=== PATIENT | male | born 1940 | race Caucasian/White ===

== ENCOUNTER 2023-06-21 08:32 | Day surgery (SDC) | payer MEDICARE, OTHER ==
[2023-05-18 15:27] VITALS: BP 158/83
[2023-06-07 08:50] VITALS: BP 144/82
--- NOTE | 2023-06-07 10:23 | NUR ---
0921- WHILE ASKING PT ABOUT OPEN SORES ON HIS SKIN THE PT IS SHOWING THE REDNESS FROM HIS PSORISIS. LOOKED AT PT'S LEFT KNEE AND THERE WAS A SMALL REDENNED AREA. PT REPORTS ITS A MISQUITO BITE THAT HE SCRATCHED OPEN. 0938- DR. DAMON IN THE ROOM TO ASSESS THE PT. DR. DAMON UPDATES THE PT THAT HE WANTS THE AREA TO HEAL AND RESCHEDULE FOR A LATER DATE. PT AND PT'S FAMILY UNDERSTANDING. 0946- PT GOING TO DRESS HIMSELF WITH HIS FAMILY. 1019- DR. DAMON OFFICE CONTACTED AND UPDATED ON PT BEING CANCELLED.
[~2023-06-21] VITALS: Ht 177.8 cm; Wt 105.5 kg
[~2023-06-21 08:32] MED LIST: ASPIRIN EC81 MG PO; ASPIRIN325 MG PO; B-121000 MC2 PO; BETAMETHASONE D15 G1 TP; BREWER S YEAST PO; BREWER'S YEAST500 MG PO; CALCIPOTRIENE60 GM TOP; CARDIZEM CD180 MG PO; DILTIAZEM 24HR180 M1 PO; FISH OIL 1,0001 EAC2 PO; FLAX OIL1000 MG PO; GARLIC1000 MG PO; HALOBETASOL PRO15 G1 TOP; HYDROMORPHONE HC4 MG PO; IRON18 MG PO; L-LYSINE500 MG PO; LECITHIN1200 MG PO; MIRALAX17 GM PO; NIACIN500 M1 PO; OCUVITE TABLET1 EAC1 PO; OCUVITE TABLET1 EACH PO; OSTERA TABLET1 EACH PO; OXYCODONE HCL5 MG PO; RED YEAST RICE600 MG PO; SENNA8.6 MG PO; VAZALORE81 MG PO; VITAMIN C100 MG PO; VITAMIN D35000 UNIT PO; XARELTO10 MG PO
[2023-06-21 09:09] VITALS: BP 147/72
[2023-06-21] MEDS ORDERED: IRON18 MG PO (09:17)
--- NOTE | 2023-06-21 11:17 | NUR ---
06/21/23 Fariba7 Brittaney Resendiz 1056 PT TO PACU SLEEPING O2 VIA MASK AT 9L, FOGGING NOTED IN MASK.
[2023-06-21] MEDS ORDERED: CEFUROXIME250 MG PO (12:49)
[2023-06-21] MEDS ORDERED: OXYCODONE HCL5 MG PO (12:50)
[2023-06-21] MEDS ORDERED: GABAPENTIN300 MG PO (12:50)
[2023-06-21] MEDS ORDERED: SENNA LAX8.6 MG PO (12:50)
[2023-06-21] MEDS ORDERED: TRAMADOL HCL50 MG PO (12:51)
[2023-06-21] MEDS ORDERED: ONDANSETRON ODT8 MG PO (12:51)
[2023-06-21 13:28] VITALS: BP 138/69
--- NOTE | 2023-06-21 13:40 | NUR ---
PT ARRIVES TO DAY SURGERY. PT'S AND GRANDDAUGHTER AT THE BEDSIDE. PT PROVIDED ICE WATER PER HIS REQUEST. LUNCH TRAY ORDERED. PT SITTING UP IN BED. RESP EVEN AND UNLABORED. OXYGEN SAT HIGH 90'S ON 2L VIA NC. CRYOCUFF IN PLACE WITH BARRIER BETWEEN SKIN AND CRYOCUFF. ON- Q PUMP INFUSING AT 4 ML/ HR. PT HAS NO FURTHER REQUESTS. BED RAIL UP X1, CALL LIGHT PROVIDED, BED IN THE LOWEST POSITION.
[2023-06-21 14:23] VITALS: BP 150/69
--- NOTE | 2023-06-21 14:28 | NUR ---
PHYSICAL THERAPY IN THE ROOM. PT ASSISTED WITH GETTING UNDERWEAR AND SHORTS ON.
--- NOTE | 2023-06-21 15:05 | NUR ---
PT RETURNS FROM PHSICAL THERAPY. PT PASSES PHYSICAL THERAPY. PT UNABLE TO URINATE AT THIS TIME. PT DRINKING ICE WATER.
[2023-06-21 15:20] VITALS: BP 130/66
--- NOTE | 2023-06-21 15:28 | NUR ---
PT ASSISTED BACK INTO BED. FOOT PUMPS AND CRYOCUFF REPLACED. PT PROVIDED MORE ICE WATER PER HIS REQUEST. PT HAS NO FURTHER REQUESTS. PT TAUGHT AND ABLE TO USE THE INCENTIVE SPIROMETER. PT ABLE TO REACH 2000 ML. PT ABLE TO DO THIS A COUPLE OF TIMES. CALL LIGHT WITH PT, PT'S FAMILY AT THE BEDSIDE.
--- NOTE | 2023-06-21 16:11 | NUR ---
PT AMBULATED TO THE RESTROOM AND BACK WITH HIS WALKER. PT UNABLE TO URINATE. PT BLADDER SCANNED FOR 433 ML. PT ENCOURAGED TO DRINK MORE FLUIDS. PT PROVIDED ICE WATER AND LEMON SAMISH SODA PER HIS REQUEST. CRYOCUFF AND FOOT PUMPS REPLACED. CALL LIGHT WITH PT.
[2023-06-21 16:44] VITALS: BP 142/67
--- NOTE | 2023-06-21 16:48 | NUR ---
PT REPORTS HE DOES NOT FEEL THE URGE TO URINATE. PT PROVIDED ANOTHER LEMON TIMBI-SHA SHOSHONE SODA PER HIS REQUEST. PT'S AT THE BEDSIDE. CALL LIGHT WITH PT.
--- NOTE | 2023-06-21 17:16 | NUR ---
PT AMBULATED TO THE RESTROOM AND BACK TO HIS ROOM. PT ABLE TO URINATE 200ML OF CLEAR YELLOW URINE. PT DRESSING HIMSELF WITH HIS HE IS READY TO GO HOME.
--- NOTE | 2023-06-21 17:37 | NUR ---
1722: DC INSTRUCTIONS PROVIDED TO PT. ALL QUESTIONS ANSWERED. PT ABLE TO TURN AND PIVOT INTO THE WHEELCHAIR. CRYOCUFF EMPTIED AND PACKAGED INTO THE CRYOCUFF BOX. PT'S PULLING THE VEHICLE UP TO THE FRONT OF THE HOSPITAL. PT ABLE TO GET INTO HIS VEHICLE IN THE PASSENGER SIDE. PT'S UPDATED ON PRESCRIPTIONS BEING SENT TO HIS PHARMACY. BOTH PARTIES STATE UNDERSTANDING.
--- NOTE | 2023-06-25 07:02 | OR ---
[facility] [address] [facility] [place], [place] [address] Signed DATE OF OPERATION: 06/21/2023 SURGEON: Eduardo Resendiz MD PREOPERATIVE DIAGNOSIS: Severe DJD of left knee. POSTOPERATIVE DIAGNOSIS: Severe DJD of left knee. PROCEDURE PERFORMED: Left total knee arthroplasty with Odilon. MEDICAL RADIATION THERAPIST: Ashley Sommer PA-C. Ashley was present and critical for all portions of procedure. ANESTHESIA: Spinal. BLOOD LOSS: 175 mL. TOURNIQUET TIME: Zero. IMPLANTS: Size 8 femur, 7 tibia, 9 mm polyethylene and a 38 mm patella. BRIEF HISTORY: Socorro is an 83-year-old gentleman with significant left knee arthritis. He had undergone right total knee many years ago with good relief, wished to proceed with the left. Risks, benefits and alternatives were discussed. He understands and wished to proceed. DESCRIPTION OF PROCEDURE: Once consent was obtained, he was taken to the operating room. After adequate anesthesia, he was placed on the operating room table on a hip bump. The left leg was prepped and draped in a standard sterile fashion. Standard anterior midline incision was made and carried through the skin and subcutaneous tissue. Skin flaps were developed medially and laterally. A midvastus arthrotomy was performed and the MCL was Electronically Signed By: EDUARDO RESENDIZ MD 06/25/23 0702 PATIENT NAME: SOCORRO BUCKLEY OPERATIVE REPORT DATE OF : 40 REPORT #: [id number] PHYSICIAN: EDUARDO RESENDIZ MD PCP: BROOKS SOLIS MD REPORT IS CONFIDENTIAL AND NOT TO BE RELEASED WITHOUT AUTHORIZATION [facility] [address] [place], [place] [address] Signed elevated as a sleeve around to the medial border. The infrapatellar fat pad was excised and the ACL and anterior horns of menisci were transected. The navigation guides were placed in the medial femoral condyle and the proximal tibia. The leg was then registered with computer followed by the fine anatomic points of the knee. Varus and valgus ligamentous testing was undertaken and slight adjustments were made to the plan. The patella was then cut and a protector plate was placed on it to allow better mobilization. Once this was completed, the robot was brought in and 4 straight cuts and 2 angle cuts were made with care taken to protect the patellar tendon and MCL. All bony remnants and remaining osteophytes were removed. The posterior osteophytes were removed off the femur but no posterior release was performed. The trials were then positioned. Knee was taken from 0 to 125 degrees with good stability throughout. The patella was noted to track well. The patella was sized and drilled for a 38 patella. The distal drill holes were finished and the proximal tibia was finished using the keel punch and drilled. Once this was accomplished, the components were obtained. The tibia was impacted into position first followed by the polyethylene. The femur was then impacted. The knee was extended and loaded. The patella was clamped into position and the clamp was removed. Again, patellar tracking was checked and found to be excellent. The knee was then washed out with bottle of Surgiphor followed by normal saline. The periarticular soft tissues were injected with 100 mL of ropivacaine and Toradol mixture. The On-Q pain pump was percutaneously placed into the adductor canal from the suprapatellar pouch. The arthrotomy was then closed using combination of #2 Stratafix and #2 FiberWire. The subcutaneous tissue was closed with 0 Stratafix and the skin with 3-0 Stratafix. The wound was sealed with Dermabond and Steri-Strips were applied. The wound was dressed with an Aquacel Ag dressing, ABDs and Cheng wrap. He was taken to the recovery room in satisfactory condition. All sponge, needle, and instrument counts were correct. Eduardo Resendiz MD BA/MODL /[id number] Electronically Signed By: EDUARDO RESENDIZ MD 06/25/23 0702 PATIENT NAME: SOCORRO BUCKLEY OPERATIVE REPORT DATE OF : 40 REPORT #: [id number] PHYSICIAN: EDUARDO RESENDIZ MD PCP: BROOKS SOLIS MD REPORT IS CONFIDENTIAL AND NOT TO BE RELEASED WITHOUT AUTHORIZATION [address] [place], [place] [address] Signed Copies: ~ Electronically Signed By: EDUARDO RESENDIZ MD 06/25/23 0702 PATIENT NAME: SOCORRO BUCKLEY OPERATIVE REPORT DATE OF : 40 REPORT #: [id number] PHYSICIAN: EDUARDO RESENDIZ MD PCP: BROOKS SOLIS MD REPORT IS CONFIDENTIAL AND NOT TO BE RELEASED WITHOUT AUTHORIZATION
== END 2023-06-21 17:28 | disposition home or self-care (01) ==
LOC: DS 08:32
PROVIDERS: ATTEND Specialist
PROC: 3E0T3BZ Introduction of Anesthetic Agent into Peripheral Nerves and Plexi, Percutaneous Approach (ICD-10-PCS; 2023-06-21)
PROC: 0SRD0JZ Replacement of Left Knee Joint with Synthetic Substitute, Open Approach (ICD-10-PCS; principal; 2023-06-21 11:35)
DX: M17.12 Unilateral primary osteoarthritis, left knee (principal); I10 Essential (primary) hypertension; E78.5 Hyperlipidemia, unspecified; Z88.5 Allergy status to narcotic agent; Z88.8 Allergy status to other drugs, medicaments and biological substances; Z85.46 Personal history of malignant neoplasm of prostate
CPT/HCPCS: 01400; 64447; 64450; 76942; 97161; C1713; C1776; J0690; J1100; J1885; J2001; J2704; J2795; J7121